=== PATIENT | female | born 1995 | race Caucasian/White ===

== ENCOUNTER → 2018-05-25 15:44 | Outpatient (CLI) | payer BC, MEDICAID ==
[2018-05-25 17:16] LABS: BASOPHILS 0.2 % (0-2); EOSINOPHILS 0.1 % (0-7); HEMATOCRIT 38.5 % (36.0-48.0); HEMOGLOBIN 13.7 g/dL (12-16); IMMATURE GRANULOCYTES 0.4 % (0-5); LYMPHOCYTES 14.6 % (15-50); MCH 33.7 pg (26.0-34.0); MCHC 35.6 g/dL (31.0-37.0); MCV 94.8 fL (80.0-100.0); MEAN PLATELET VOLUME 10.9 fL (7.4-10.4); MONOCYTES 5.2 % (2-11); NEUTROPHILS 79.5 % (40-80); PLATELET COUNT 251 10x3/uL (130-400); RBC 4.06 10x6/uL (4.00-5.40); RDW 12.2 % (11.5-14.5); WBC 12.8 10x3/uL (4.8-10.8)
[2018-05-25 17:21] LABS: CREATININE - URINE 29.9 mg/dL (30-125); PRO/CRE RATIO URINE 0.2 mg/g; PROTEIN - URINE 6.7 mg/dL (0.0-11.9)
[2018-05-25 17:25] LABS: UDS - AMPHET NEGATIVE QUAL (NEGATIVE); UDS - BARB NEGATIVE QUAL (NEGATIVE); UDS - BENZO NEGATIVE QUAL (NEGATIVE); UDS - COCAINE NEGATIVE QUAL (NEGATIVE); UDS - OPIATE NEGATIVE QUAL (NEGATIVE); UDS - PCP NEGATIVE QUAL (NEGATIVE); UDS - THC NEGATIVE QUAL (NEGATIVE)
[2018-05-25 17:32] LABS: ALBUMIN 3.5 g/dL (3.4-5.0); ALKALINE PHOSPHATASE 66 U/L (46-116); ALT (SGPT) 26 U/L (10-68); BILIRUBIN - TOTAL 0.22 mg/dL (0.2-1.3); CALC OSMOLALITY 274 mosm/kg (275-300); CALCIUM 9.1 mg/dL (8.5-10.1); CHLORIDE - SERUM 104 mmol/L (98-107); CREATININE - SERUM 0.7 mg/dL (0.6-1.3); GLUCOSE 85 mg/dL (74-106); LDH 136 U/L (81-234); POTASSIUM - SERUM 3.4 mmol/L (3.5-5.1); SODIUM 139 mmol/L (136-145); UREA NITROGEN 8 mg/dL (7-18); URIC ACID 3.2 mg/dL (2.6-7.2); eGFR NON AFRICAN AMERICAN > 90 mL/min (90-120)
[2018-05-25 17:47] LABS: CARBON DIOXIDE 27.1 mmol/L (21.0-32.0)
[2018-05-25 17:49] LABS: POTASSIUM - SERUM 37.1 mmol/L (3.5-5.1)
[2018-05-25 19:32] LABS: APPEARANCE HAZY (CLEAR); BILIRUBIN NEGATIVE (NEGATIVE); COLOR YELLOW (YELLOW); GLUCOSE NEGATIVE (NEGATIVE); KETONE NEGATIVE (NEGATIVE); NITRITE NEGATIVE (NEGATIVE); PROTEIN NEGATIVE (NEGATIVE); SPECIFIC GRAVITY 1.005 (1.005-1.020); UROBILINOGEN NORMAL (NORMAL)
[2018-05-26 19:08] LABS: PROTEIN - URINE 14.3 mg/dL (0.0-11.9)
== END | disposition home or self-care (01) ==
LOC: D.ER 15:24 → EDSTATUS 15:34 → D.LDO 15:44
PROVIDERS: ATTEND Obstetrics & Gynecology
DX: O26.892 Other specified pregnancy related conditions, second trimester (principal); Z3A.21 21 weeks gestation of pregnancy; R42 Dizziness and giddiness

== ENCOUNTER → 2018-09-16 14:18 | Outpatient (CLI) | payer BC, MEDICAID ==
[~2018-09-16 14:18] MED LIST: PRENAVITE1 TAB PO
[2018-09-16 15:17] LABS: APPEARANCE HAZY (CLEAR); BILIRUBIN NEGATIVE (NEGATIVE); COLOR YELLOW (YELLOW); GLUCOSE NEGATIVE (NEGATIVE); KETONE NEGATIVE (NEGATIVE); NITRITE NEGATIVE (NEGATIVE); PROTEIN NEGATIVE (NEGATIVE); UROBILINOGEN NORMAL (NORMAL)
[2018-09-16 15:19] LABS: RED CELLS - URINE 0-5 /hpf (0-5)
[2018-09-16 15:20] LABS: BACTERIA MANY /hpf (NONE SEEN); MUCUS <1+ /lpf (NONE SEEN)
[2018-09-22 03:08] LABS: CHENODEOXYCHOLIC ACID 1.1 umol/L (()); CHOLIC ACID 3.3 umol/L (()); TOTAL BILE ACIDS 4.9 umol/L (()); URSODEOXYCHOLIC ACID <0.10 umol/L (())
[2018-09-23 20:11] VITALS: BMI 27.5
== END | disposition home or self-care (01) ==
LOC: D.LDO 14:18
PROVIDERS: ATTEND Obstetrics & Gynecology
DX: O26.893 Other specified pregnancy related conditions, third trimester (principal); Z3A.37 37 weeks gestation of pregnancy

== ENCOUNTER → 2018-09-19 14:40 | Outpatient (CLI) | payer BC, MEDICAID ==
[2018-09-19 16:49] LABS: APPEARANCE CLEAR (CLEAR); BILIRUBIN NEGATIVE (NEGATIVE); COLOR YELLOW (YELLOW); GLUCOSE NEGATIVE (NEGATIVE); KETONE NEGATIVE (NEGATIVE); NITRITE NEGATIVE (NEGATIVE); PROTEIN NEGATIVE (NEGATIVE); SPECIFIC GRAVITY 1.015 (1.005-1.020); UROBILINOGEN NORMAL (NORMAL)
[2018-09-23 20:11] VITALS: BMI 27.5
== END | disposition home or self-care (01) ==
LOC: D.LDO 14:40
PROVIDERS: Obstetrics & Gynecology; ATTEND Obstetrics & Gynecology
DX: O26.892 Other specified pregnancy related conditions, second trimester (principal); Z3A.21 21 weeks gestation of pregnancy

== ENCOUNTER 2018-09-23 15:12 | Inpatient (IN) | payer BC, MEDICAID ==
[~2018-09-23] VITALS: Ht 165.1 cm; Wt 74.8 kg
--- NOTE | 2018-09-23 15:54 | NUR ---
PT'S NURSE IN ROOM WITH PT UPON ARRIVAL FOR SUICIDE ASSESSMENT. DR. GOYAL NOTIFIED AND REVIEWED PT'S BEHAVIOR AND ASSESSMENT RESULTS. PT IS A LOW RISK PER DR. GOYAL. DR. GOYAL STATED TO GIVE RESOURCES TO PT AT TIME OF DISCHARGE. NO FURTHER ORDERS AT THIS TIME. RESOURCES REVIEWED WITH PT AND SHE VERBALIZED UNDERSTANDING.
[2018-09-23 16:00] LABS: APPEARANCE CLEAR (CLEAR); COLOR YELLOW (YELLOW); SPECIFIC GRAVITY 1.015 (1.005-1.020)
[2018-09-23 16:01] LABS: BILIRUBIN NEGATIVE (NEGATIVE); GLUCOSE NEGATIVE (NEGATIVE); KETONE NEGATIVE (NEGATIVE); NITRITE NEGATIVE (NEGATIVE); PROTEIN NEGATIVE (NEGATIVE); UROBILINOGEN NORMAL (NORMAL)
[2018-09-23 16:04] LABS: EPITHELIAL CELLS 0-5 /hpf (0-5); RED CELLS - URINE OCC /hpf (0-5)
[2018-09-23 16:05] LABS: BACTERIA FEW /hpf (NONE SEEN)
[2018-09-23 16:17] LABS: HCG URINE POSITIVE (NEGATIVE)
[2018-09-23 18:00] LABS: ALBUMIN 2.5 g/dL (3.4-5.0); ALKALINE PHOSPHATASE 232 U/L (46-116); ALT (SGPT) 144 U/L (10-68); BILIRUBIN - DIRECT 0.36 mg/dL (0.00-0.30); BILIRUBIN - TOTAL 0.56 mg/dL (0.2-1.3); CALC OSMOLALITY 270 mosm/kg (275-300); CALCIUM 8.9 mg/dL (8.5-10.1); CARBON DIOXIDE 19.6 mmol/L (21.0-32.0); CHLORIDE - SERUM 104 mmol/L (98-107); CREATININE - SERUM 0.6 mg/dL (0.6-1.3); GLUCOSE 107 mg/dL (74-106); POTASSIUM - SERUM 4.1 mmol/L (3.5-5.1); PROTEIN - SERUM 6.5 g/dL (6.4-8.2); SODIUM 136 mmol/L (136-145); UREA NITROGEN 9 mg/dL (7-18); eGFR NON AFRICAN AMERICAN > 90 mL/min (90-120)
[2018-09-23] MEDS ORDERED: PRENAVITE1 TAB PO (18:39)
[2018-09-23 18:49] LABS: HEMATOCRIT 35.8 % (36.0-48.0); HEMOGLOBIN 12.8 g/dL (12-16); MCH 32.7 pg (26.0-34.0); MCHC 35.8 g/dL (31.0-37.0); MCV 91.6 fL (80.0-100.0); MEAN PLATELET VOLUME 11.6 fL (7.4-10.4); RBC 3.91 10x6/uL (4.00-5.40); RDW 11.9 % (11.5-14.5); WBC 9.9 10x3/uL (4.8-10.8)
[2018-09-23 20:11] VITALS: BP 127/83; Ht 165.1 cm; Wt 74.8 kg
--- NOTE | 2018-09-24 06:18 | NUR ---
PT RESIDENTIAL SALES ASSOCIATE LIGHT, PT C/O CRAMPING, ADM NORCO PER MD ORDERS, SEE EMAR, PT UP TO BR WITH ASSISTANCE, PT VOIDED WITH NO DIFFICULTY, ASSISTED PT WITH KRYSTLE CARE AND PAD, PT BACK TO BED, DENIES FURTHER NEEDS, IN OPEN CRIB CART AT BEDSIDE
[2018-09-24 07:26] VITALS: BP 111/70
--- NOTE | 2018-09-24 07:26 | NUR ---
RECEIVED PT SITTING UP IN BED. AWAKE. AAO X 3. VSS. HRRR WITHOUT AUDIBLE MURMUR. BBS CLEAR. BS X 4. ABDOMEN SOFT/NON-DISTENDED. FUNDUS FIRM AT U/U. RUBRA LOCHIA SMALL AMT. NO CLOTS OR HEAVY BLEEDING PER PT STATES. NEG HOMANS' SIGN. PPP. NO EDEMA NOTED TO BLE. PT DENIES PAIN. PT REQUESTS AND RECEIVES ORANGE JUICE. SR UP X 2. CALL LIGHT IN REACH.
--- NOTE | 2018-09-24 09:46 | NUR ---
PT AMB TO BR WITHOUT DIFFICULTY. STATES RIGHT LEG NOT NUMB. PT VOIDS WITHOUT DIFFICULTY. PERICARE DONE WITH BETADINE, TUCKS AND DERMOPLAST SPRAY. PT AMBULATES BACK TO BED. JAE ACTIVITY WELL.
--- NOTE | 2018-09-24 10:45 | NUR ---
PT SITTING UP IN BED. VISITS WITH VISITOR. DENIES C/O OR NEEDS.
--- NOTE | 2018-09-24 12:25 | NUR ---
PT C/O ABDOMINAL CRAMPING OF "4" ON 0-10 PAIN SCALE. MOTRIN 600 MG AND NORCO 5/325 GIVEN PO ORDERED. PT INSTRUCTED ON MEDS. VERBALIZES UNDERSTANDING.
[2018-09-24 13:37] VITALS: BP 114/79
--- NOTE | 2018-09-24 13:37 | NUR ---
PT SITTING UP IN BED. INFANT. VSS. PT DENIES PAIN OR NEEDS. PT ENCOURAGED TO AMBULATE IN HALLS AND OFFERED FOR PT TO SHOWER THIS AFTERNOON.
--- NOTE | 2018-09-24 15:30 | NUR ---
PT SITTING UP IN BED. CARING FOR INFANT. DENIES NEEDS OR C/O.
--- NOTE | 2018-09-24 16:00 | NUR ---
PT AMBULATORY IN HALLS. STATES SHOWERED. DENIES C/O OR NEEDS.
--- NOTE | 2018-09-24 18:00 | NUR ---
PT SITTING UP IN BED. CARING FOR INFANT. DENIES NEEDS OR C/O.
--- NOTE | 2018-09-24 19:10 | NUR ---
BEDSIDE REPORT COMPLETED AT THIS TIME WITH JACKELYN LOVELL TO ASSUME PATIENT CARE.
--- NOTE | 2018-09-24 19:34 | NUR ---
IBUPROFEN ADMINISTERED PO PER MD ORDERS AND PT REQUEST, SEE EMAR
[2018-09-24 19:36] VITALS: BP 106/75
--- NOTE | 2018-09-24 19:36 | NUR ---
SHIFT ASSESSMENT COMPLETED AT THIS TIME, SEE FLOWSHEET
--- NOTE | 2018-09-24 20:30 | NUR ---
PATIENT SLEEPING WITH EVEN RESPIRATIONS, REMAINS AT BEDSIDE IN OPEN CRIB
--- NOTE | 2018-09-24 22:17 | NUR ---
flagyl po per md orders, see emar. pt sitting up in bed holding infant, requests a sandwich tray, provided at this time, denies other needs. will continue to monitor
--- NOTE | 2018-09-24 23:30 | NUR ---
PT SITTING UP IN BED, IN OPEN CRIB AT BEDSIDE. ICE WATER PROVIDED, PT DENIES OTHER NEEDS. WILL CONTINUE TO MONITOR
[2018-09-25 00:23] VITALS: BP 118/59
--- NOTE | 2018-09-25 00:23 | NUR ---
PATIENT SITTING UP HOLDING , DENIES NEEDS OR PAIN AT THIS TIME. BED REMAINS LOCKED IN LOW POSITION, SIDE RAILS UPX2, CALL CRISTINA AND TRAY TABLE IN REACH
--- NOTE | 2018-09-25 01:01 | NUR ---
LAB AT BEDSIDE
[2018-09-25 01:15] LABS: BASOPHILS 0.2 % (0-2); EOSINOPHILS 1.1 % (0-7); HEMATOCRIT 30.5 % (36.0-48.0); HEMOGLOBIN 10.7 g/dL (12-16); IMMATURE GRANULOCYTES 0.3 % (0-5); LYMPHOCYTES 22.7 % (15-50); MCH 31.9 pg (26.0-34.0); MCHC 35.1 g/dL (31.0-37.0); MEAN PLATELET VOLUME 10.8 fL (7.4-10.4); MONOCYTES 8.2 % (2-11); NEUTROPHILS 67.5 % (40-80); PLATELET COUNT 197 10x3/uL (130-400); RBC 3.35 10x6/uL (4.00-5.40); WBC 12.2 10x3/uL (4.8-10.8)
--- NOTE | 2018-09-25 02:51 | NUR ---
PT COMPLAINING OF HER IV SITE BOTHERING HER AND REQUESTS THAT IT BE TAKEN OUT. IV D/C'D AT THIS TIME WITHOUT INCIDENT. NO FURTHER NEEDS IDENTIFIED.
--- NOTE | 2018-09-25 04:31 | NUR ---
PATIENT REQUESTING PAIN MEDICATION FOR 7/10 PAIN. NORCO ADMINISTERED PER MD ORDERS, SEE EMAR.
--- NOTE | 2018-09-25 05:17 | NUR ---
PATIENT SITTING IN BED HOLDING INFANT, STATES THAT SHE HAS NO PAIN. ICE WATER PROVIDED PER PT REQUEST. NO FURTHER NEEDS IDENTIFIED. WILL CONTINUE TO MONITOR
[2018-09-25 07:12] LABS: RAPID PLASMA REAGIN Non Reactive (Non Reactive)
[2018-09-25 08:13] VITALS: BP 113/80
--- NOTE | 2018-09-25 08:13 | NUR ---
THIS RN TO ROOM FOR SHIFT ASSESSMENT. PT SITTING UP IN BED HOLDING ON CHEST. PT DENIES ANY PAIN, DENIES HEAVY BLEEDING. PT INSTRUCTED ON S/S TO REPORT REGARDING LOCHIA FLOW/CLOTS. SHIFT ASSESSMENT DONE, VSS, SEE FLOWSHEET FOR DOC. FF, ML, U/2. SMALL RUBRA LOCHIA WITHOUT CLOTS. POC DISCUSSED WITH PT, PT VERBALIZES UNDERSTANDING. PT PROVIDED WITH PADS, PANTIES, AND INFANT DIAPERS REQUESTED. PT DENIES FURTHER NEEDS. SRUx2, CL IN REACH. WILL CONT TO MONITOR.
--- NOTE | 2018-09-25 09:36 | NUR ---
THIS RN TO ROOM FOR PT CHECK AND FLAGYL ADMIN. PT ADMIN FLAGYL SCHEDULED, SEE EMAR FOR DOC. PT DENIES FURTHER NEEDS, CHANGING INFANT DIAPER AT THIS TIME. Fiorella CL IN REACH. WILL CONT TO MONITOR.
--- NOTE | 2018-09-25 10:50 | NUR ---
THIS RN TO ROOM FOR PT CHECK. PT LYING IN BED WITH LIGHTS DIMMED, ALERTS THIS RN ENTERS ROOM. PT DENIES NEEDS. PT ENCOURAGED TO CONTINUE RESTING. SRUx2, CL IN REACH. RESTING IN [place] AT BEDSIDE. WILL CONT TO MONITOR.
--- NOTE | 2018-09-25 11:57 | NUR ---
THIS RN TO ROOM FOR PT CHECK. PT SITTING UP IN BED, INFANT. PT C/O CRAMPING, RATES PAIN 5/10 AND REQUESTING PAIN MEDICATION. PT ADMIN PRN MOTRIN ORDERED FOR PAIN, SEE EMAR FOR DOC. PT DENIES FURTHER NEEDS. SRUx2, CL IN REACH. WILL CONT TO MONITOR.
--- NOTE | 2018-09-25 13:04 | NUR ---
THIS RN TO ROOM FOR PT CHECK AND PAIN REASSESSMENT. PT SITTING UP IN BED, RATES PAIN 4/10 AT PERINEUM, PRESSURE AT STITCHES. PT REQUESTING ADDITIONAL PAIN MEDICATION. PT ADMIN PRN NORCO ORDERED, SEE EMAR FOR DOC. PT OFFERED ICE PACK FOR PERINEAL PAIN WELL. PT DENIES WANTING ICE PACK AT THIS TIME. SRUx2, CL IN REACH. WILL CONT TO MONITOR.
--- NOTE | 2018-09-25 16:30 | NUR ---
PT AMBULATING OFF UNIT, STATES SHE WANTS TO GO FOR A WALK. ACCOMPANIED BY FRIEND. PT DENIES DIZZINESS OR ANY NEEDS.
--- NOTE | 2018-09-25 16:50 | NUR ---
PT AMBULATES BACK TO ROOM, SMILING, DENIES NEEDS. ACCOMPANIED BY FRIEND.
--- NOTE | 2018-09-25 17:48 | NUR ---
THIS RN TO ROOM FOR PT CHECK. PT SITTING UP IN BED, DENIES PAIN OR ANY NEEDS AT THIS TIME. SRUx2, CL IN REACH. WILL CONT TO MONITOR.
--- NOTE | 2018-09-25 19:50 | NUR ---
PT UP TO SHOWER.
[2018-09-25 20:23] VITALS: BP 109/63
--- NOTE | 2018-09-25 20:32 | NUR ---
NORCO 5/325MG ADMINISTERED PO PER MD ORDERS AND PT REQUEST FOR PERINEAL PAIN.
--- NOTE | 2018-09-25 21:27 | NUR ---
PATIENT STATES THAT SHE IS NO LONGER IN PAIN. DENIES NEEDS, WILL CONTINUE TO MONITOR
--- NOTE | 2018-09-25 22:10 | NUR ---
RHOGAM INJECTION GIVEN IM TO LEFT DELTOID AT THIS TIME WITHOUT INCIDENT, BANDAID APPLIED, SEE EMAR
--- NOTE | 2018-09-26 00:15 | NUR ---
PATIENT AMBULATING IN HALLWAY TO BRING INFANT TO NURSERY AND TO GO OUTSIDE TO GET SOME FRESH AIR
--- NOTE | 2018-09-26 01:08 | NUR ---
PT BACK IN HER ROOM, SITTING UP IN THE BED WITH INFANT. DENIES NEEDS AT THIS TIME.
--- NOTE | 2018-09-26 03:00 | NUR ---
PATIENT FINISHED BREAST FEEDING, INFANT IN OPEN CRIB AT BEDSIDE, WILL CONTINUE TO MONITOR
--- NOTE | 2018-09-26 04:30 | NUR ---
PT SLEEPING, EASILY AROUSED TO VERBAL. JACKELYN KERN WITH PAT WHIPPLE CRIB TO ROOM FOR HIS FEEDING. PT DENIES NEEDS.
--- NOTE | 2018-09-26 05:44 | NUR ---
MOTRIN 600MG PO PER PT REQUEST, SEE EMAR
[2018-09-26 07:53] VITALS: BP 113/64
--- NOTE | 2018-09-26 07:53 | NUR ---
RECEIVED PT IN SEMI-BROWER'S POSITION. HOLDS WITH MUCH WARMTH SHOWN. VSS. HRRR WITHOUT AUDIBLE MURMUR. BBS CLEAR. BS X 4. ABDOMEN SOFT/NON-DISTENDED. PT STATES PASSING GAS. NO BM YET. FUNDUS FIRM AT U/2. RUBRA LOCHIA SMALL AMT. NO CLOTS OR HEAVY BLEEDING PER PT STATES. NEG HOMANS' SIGN. PPP. NO EDEMA NOTED TO BLE. SR UP X 2. CALL LIGHT IN REACH.
--- NOTE | 2018-09-26 08:40 | NUR ---
PT SITTING UP IN BED. REQUESTS AND RECEIVES MORE SUGAR FOR COFFEE.
--- NOTE | 2018-09-26 09:57 | NUR ---
DR VALIENTE ON UNIT. ORDER RECEIVED FOR DISCHARGE.
[2018-09-26] MEDS ORDERED: MOTRIN600 MG PO (10:23)
[2018-09-26] MEDS ORDERED: HYDROCODON-ACE1 EAC7 PO (10:23)
--- NOTE | 2018-09-26 11:05 | NUR ---
PT GIVEN DISCHARGE INSTRUCTIONS. VERBALIZES UNDERSTANDING OF ALL INSTRUCTIONS. COPIES GIVEN TO PT. RX FOR NORCO 5/325 AND MOTRIN GIVEN TO PT. PT AWAITS INFANT'S DISCHARGE.
--- NOTE | 2018-09-26 13:00 | NUR ---
PT SITTING UP IN BED. HOLDING INFANT WITH MUCH WARMTH SHOWN. DENIES C/O OR NEEDS. AWAITING 'S DISCHARGE.
--- NOTE | 2018-09-26 14:30 | NUR ---
PT READY FOR DISCHARGE. DISCHARGED IN STABLE CONDITION VIA WHEELCHAIR WITH SECURED IN CARSEAT TO PRIVATE VEHICLE.
== END 2018-09-26 14:30 | disposition home or self-care (01) | DRG 806 ==
LOC: D.LDO 15:12 → D.LD 18:34
PROVIDERS: ADMIT Obstetrics & Gynecology; ATTEND Obstetrics & Gynecology
PROC: 0KQM0ZZ Repair Perineum Muscle, Open Approach (ICD-10-PCS; principal; 2018-09-24)
PROC: 10E0XZZ Delivery of Products of Conception, External Approach (ICD-10-PCS; 2018-09-24)
DX: O26.62 Liver and biliary tract disorders in childbirth (principal); O98.32 Other infections with a predominantly sexual mode of transmission complicating childbirth; Z37.0 Single live birth; O71.4 Obstetric high vaginal laceration alone; Z3A.39 39 weeks gestation of pregnancy; O99.334 Smoking (tobacco) complicating childbirth

== ENCOUNTER 2018-10-21 02:27 | Emergency (ER) | payer BC, MEDICAID ==
[~2018-10-21] VITALS: Ht 165.1 cm; Wt 68.0 kg
[~2018-10-21 02:27] MED LIST changes: +HYDROCODON-ACE1 EAC7 PO; +MOTRIN600 MG PO
[2018-10-21 02:31] VITALS: Ht 165.1 cm; Wt 68.0 kg
[2018-10-21 03:29] LABS: BASOPHILS 0.1 % (0-2); EOSINOPHILS 1.2 % (0-7); HEMATOCRIT 36.6 % (36.0-48.0); HEMOGLOBIN 12.9 g/dL (12-16); IMMATURE GRANULOCYTES 0.2 % (0-5); LYMPHOCYTES 25.9 % (15-50); MCH 31.9 pg (26.0-34.0); MCHC 35.2 g/dL (31.0-37.0); MCV 90.4 fL (80.0-100.0); MEAN PLATELET VOLUME 10.3 fL (7.4-10.4); MONOCYTES 4.9 % (2-11); NEUTROPHILS 67.7 % (40-80); PLATELET COUNT 254 10x3/uL (130-400); RBC 4.05 10x6/uL (4.00-5.40); RDW 11.3 % (11.5-14.5); WBC 9.8 10x3/uL (4.8-10.8)
[2018-10-21 03:33] LABS: HCG SERUM NEGATIVE (NEGATIVE)
[2018-10-21 03:36] LABS: APPEARANCE CLOUDY (CLEAR); BILIRUBIN NEGATIVE (NEGATIVE); COLOR YELLOW (YELLOW); GLUCOSE NEGATIVE (NEGATIVE); KETONE NEGATIVE (NEGATIVE); NITRITE NEGATIVE (NEGATIVE); PROTEIN NEGATIVE (NEGATIVE); SPECIFIC GRAVITY 1.015 (1.005-1.020)
[2018-10-21 03:38] LABS: ALBUMIN 3.2 g/dL (3.4-5.0); ALKALINE PHOSPHATASE 210 U/L (46-116); ALT (SGPT) 45 U/L (10-68); AMYLASE - SERUM 42 U/L (25-115); BILIRUBIN - TOTAL 0.32 mg/dL (0.2-1.3); CALC OSMOLALITY 278 mosm/kg (275-300); CALCIUM 8.4 mg/dL (8.5-10.1); CARBON DIOXIDE 28.7 mmol/L (21.0-32.0); CHLORIDE - SERUM 104 mmol/L (98-107); CREATININE - SERUM 0.9 mg/dL (0.6-1.3); GLUCOSE 95 mg/dL (74-106); LIPASE 134 U/L (73-393); POTASSIUM - SERUM 3.3 mmol/L (3.5-5.1); PROTEIN - SERUM 6.7 g/dL (6.4-8.2); SODIUM 140 mmol/L (136-145); UREA NITROGEN 13 mg/dL (7-18); eGFR NON AFRICAN AMERICAN 82 mL/min (90-120)
[2018-10-21 03:38] LABS: AMORPHOUS SEDIMENT >1+ /lpf (NONE SEEN); BACTERIA FEW /hpf (NONE SEEN); EPITHELIAL CELLS 0-5 /hpf (0-5); RED CELLS - URINE 0-5 /hpf (0-5); WHITE CELLS - URINE 0-5 /hpf (0-5)
[2018-10-21] MEDS ORDERED: PROTONIX40 MG PO (05:38)
[2018-10-21 06:04] VITALS: BP 135/79
== END 2018-10-21 06:00 | disposition home or self-care (01) ==
LOC: D.ER 02:27
PROVIDERS: Family Medicine
DX: R10.13 Epigastric pain (principal); K29.70 Gastritis, unspecified, without bleeding

== ENCOUNTER 2020-01-04 19:31 | Emergency (ER) | payer BC, MEDICAID ==
[~2020-01-04] VITALS: Ht 165.1 cm; Wt 68.2 kg
[~2020-01-04 19:31] MED LIST changes: +PROTONIX40 MG PO
[2020-01-04 19:42] VITALS: Ht 165.1 cm; Wt 68.2 kg
[2020-01-04 20:15] LABS: BASOPHILS 0.2 % (0-2); EOSINOPHILS 0.8 % (0-7); HEMATOCRIT 32.8 % (36.0-48.0); HEMOGLOBIN 11.5 g/dL (12-16); IMMATURE GRANULOCYTES 0.6 % (0-5); LYMPHOCYTES 21.5 % (15-50); MCH 32.3 pg (26.0-34.0); MCHC 35.1 g/dL (31.0-37.0); MCV 92.1 fL (80.0-100.0); MONOCYTES 6.3 % (2-11); NEUTROPHILS 70.6 % (40-80); PLATELET COUNT 224 10x3/uL (130-400); RBC 3.56 10x6/uL (4.00-5.40); RDW 12.4 % (11.5-14.5); WBC 10.4 10x3/uL (4.8-10.8)
[2020-01-04 20:16] LABS: BACTERIA MANY HPF (NONE SEEN); BILIRUBIN NEGATIVE (NEGATIVE); EPITHELIAL CELLS NSEEN /hpf (0-5); KETONE NEGATIVE (NEGATIVE); NITRITE NEGATIVE (NEGATIVE); UROBILINOGEN NORMAL mg/dL (< 2); WHITE CELLS - URINE OCC HPF (0-4)
[2020-01-04 20:23] LABS: CALC OSMOLALITY 268 mosm/kg (275-300); CALCIUM 8.3 mg/dL (8.5-10.1); CARBON DIOXIDE 24.4 mmol/L (21.0-32.0); CHLORIDE - SERUM 105 mmol/L (98-107); CREATININE - SERUM 0.6 mg/dL (0.6-1.3); GLUCOSE 95 mg/dL (74-106); POTASSIUM - SERUM 3.8 mmol/L (3.5-5.1); SODIUM 135 mmol/L (136-145); UREA NITROGEN 11 mg/dL (7-18); eGFR NON AFRICAN AMERICAN > 90 mL/min (90-120)
[2020-01-04 20:29] LABS: ALBUMIN 2.8 g/dL (3.4-5.0); ALKALINE PHOSPHATASE 62 U/L (30-120); ALT (SGPT) 21 U/L (10-68); BILIRUBIN - TOTAL 0.13 mg/dL (0.2-1.3); PROTEIN - SERUM 6.5 g/dL (6.4-8.2)
[2020-01-04] MEDS ORDERED: MACROBID100 MG PO (20:56)
[2020-01-04 21:08] VITALS: BP 110/72
== END 2020-01-04 21:09 | disposition home or self-care (01) ==
LOC: D.ER 19:31
PROVIDERS: Family Medicine
DX: O26.892 Other specified pregnancy related conditions, second trimester (principal); N39.0 Urinary tract infection, site not specified

== ENCOUNTER 2020-05-22 22:29 | Outpatient (CLI) | payer BC, MEDICAID ==
[2020-01-04 19:42] VITALS: BMI 25.0
[~2020-05-22 22:29] MED LIST changes: +MACROBID100 MG PO
[2020-05-22 22:58] LABS: KETONE NEGATIVE (NEGATIVE); NITRITE NEGATIVE (NEGATIVE); UROBILINOGEN NORMAL mg/dL (< 2)
[2020-05-22 22:59] LABS: BILIRUBIN NEGATIVE (NEGATIVE)
[2020-05-22 23:00] LABS: BACTERIA MODERATE HPF (NONE SEEN)
[2020-05-22 23:03] LABS: UDS - AMPHET NEGATIVE QUAL (NEGATIVE); UDS - BARB NEGATIVE QUAL (NEGATIVE); UDS - BENZO NEGATIVE QUAL (NEGATIVE); UDS - COCAINE NEGATIVE QUAL (NEGATIVE); UDS - OPIATE NEGATIVE QUAL (NEGATIVE); UDS - PCP NEGATIVE QUAL (NEGATIVE); UDS - THC NEGATIVE QUAL (NEGATIVE)
== END 2020-05-22 23:25 | disposition home or self-care (01) ==
LOC: D.LDO 22:29
PROVIDERS: ATTEND Obstetrics & Gynecology
DX: O47.9 False labor, unspecified (principal)

== ENCOUNTER 2020-05-24 16:29 | Outpatient (CLI) | payer BC, MEDICAID ==
[2020-01-04 19:42] VITALS: BMI 25.0
[2020-05-24] MEDS ORDERED: PRENAVITE1 TAB PO (16:44)
[2020-05-24] MEDS ORDERED: ZOFRAN4 MG PO (16:45)
[2020-05-24] MEDS ORDERED: VISTARIL25 MG PO (16:45)
== END 2020-05-24 17:45 | disposition home or self-care (01) ==
LOC: D.LDO 16:29
PROVIDERS: ATTEND Obstetrics & Gynecology
DX: O35.9XX0 Maternal care for (suspected) fetal abnormality and damage, unspecified, not applicable or unspecified (principal)

== ENCOUNTER 2020-05-31 12:40 | Outpatient (CLI) | payer BC, MEDICAID ==
[2020-01-04 19:42] VITALS: BMI 25.0
[~2020-05-31 12:40] MED LIST changes: +VISTARIL25 MG PO; +ZOFRAN4 MG PO
[2020-05-31] MEDS ORDERED: OMEPRAZOLE40 MG PO (22:18)
== END 2020-05-31 13:00 | disposition home or self-care (01) ==
LOC: D.LDO 12:40
PROVIDERS: ATTEND Obstetrics & Gynecology
DX: O36.8190 Decreased fetal movements, unspecified trimester, not applicable or unspecified (principal)

== ENCOUNTER 2020-05-31 21:19 | Inpatient (IN) | payer BC, MEDICAID ==
[~2020-05-31] VITALS: Ht 165.1 cm; Wt 86.6 kg
[2020-05-31] MEDS ORDERED: OMEPRAZOLE40 MG PO (22:18)
[2020-05-31 22:20] VITALS: BP 111/77; Ht 165.1 cm; Wt 86.6 kg
[2020-06-01 00:37] LABS: HEMATOCRIT 32.5 % (36.0-48.0); HEMOGLOBIN 10.8 g/dL (12-16); MCH 29.8 pg (26.0-34.0); MCHC 33.2 g/dL (31.0-37.0); MCV 89.5 fL (80.0-100.0); RBC 3.63 10x6/uL (4.00-5.40); RDW 12.6 % (11.5-14.5); WBC 11.8 10x3/uL (4.8-10.8)
[2020-06-01 00:48] LABS: UDS - AMPHET NEGATIVE QUAL (NEGATIVE); UDS - BARB NEGATIVE QUAL (NEGATIVE); UDS - BENZO NEGATIVE QUAL (NEGATIVE); UDS - COCAINE NEGATIVE QUAL (NEGATIVE); UDS - OPIATE NEGATIVE QUAL (NEGATIVE); UDS - PCP NEGATIVE QUAL (NEGATIVE); UDS - THC NEGATIVE QUAL (NEGATIVE)
[2020-06-01 00:53] LABS: BILIRUBIN NEGATIVE (NEGATIVE); KETONE NEGATIVE (NEGATIVE); NITRITE NEGATIVE (NEGATIVE); UROBILINOGEN NORMAL mg/dL (< 2)
[2020-06-01 00:55] LABS: BACTERIA MODERATE HPF (NONE SEEN); SQUAMOUS EPITHELIAL 0-5 HPF (0-4)
--- NOTE | 2020-06-01 04:07 | NUR ---
PT GIVEN A BOLUS OF 0.4 MG AT THIS TIME. FOR ADDITIONAL PAIN CONTROL. Roxanne CASTELLANOS RN
--- NOTE | 2020-06-01 16:00 | NUR ---
RECIEVED PT VIA WHEELCHAIR FROM L&D ACCOMPANIED BY SIGNIFICANT OTHER AND L&D STAFF. REPORT RECEIVED FROM Adam MCBRIDE RN.
--- NOTE | 2020-06-01 17:00 | NUR ---
PT WAREHOUSE TEAM MEMBER LIGHT REQUESTING ASSISTANCE UP TO BATHROOM STATING HER LEG STILL FEELS A LITTLE NUMB. ASSISTED PT UP TO BATHROOM. PT VOIDED WITHOUT DIFFICULTY. PT AMBULATED BACK TO BED WITHOUT ASSISTANCE. BED IN LOW POSITION. SIDE RAILS UP X2, CALL LIGHT IN REACH.
[2020-06-01 17:55] VITALS: BP 118/75
--- NOTE | 2020-06-01 17:56 | NUR ---
PT SITTING UP IN BED WITH SKIN TO SKIN ON CHEST. VS TAKEN AND STABLE. NO NEEDS VOICED AT THIS TIME.
--- NOTE | 2020-06-01 19:05 | NUR ---
REPORT GIVEN BY JACKELYN HAYES
[2020-06-01 20:00] VITALS: BP 120/84
--- NOTE | 2020-06-01 20:15 | NUR ---
PT ASSESSMENT COMPLETED. PT HAD A NVD THIS AFTERNOON. SHE HAD NO TEARS OR LACERATIONS. SHE HAS A LITTLE CRAMPING BUT NOT BAD. SHE IS AMBULATING IN HER ROOM AND OUTSIDE IN HALLS. SHE STATES HER LOCHIA IS SMALL. HER FUNDUS IS FIRM. HER LUNGS SOUND CLEAR AND HEART SOUNDS WNL. SHE HAS A SALINE LOCK IN HER LEFT FOREARM. SHE HAS NO C/O OR NEEDS AT THIS TIME.
--- NOTE | 2020-06-01 21:00 | NUR ---
PT IS IN THE SHOWER. NO C/O NO NEEDS.
--- NOTE | 2020-06-01 22:00 | NUR ---
PT ASKED FOR PAIN MEDS FOR CRAMPING. SHE WAS GIVEN TYLENOL ES 2 PO AND 10 MG OF TORADOL PO. I EXPLAINED WHAT THE TORADOL WAS TO PT AND SHE VERBALIZED UNDERSTANDING.
--- NOTE | 2020-06-01 23:18 | NUR ---
CHECKED IN ON PT. SHE IS DOING WELL AND HER CRAMPING IS BETTER.
--- NOTE | 2020-06-02 00:45 | NUR ---
PT IS RESTING QUIETLY WITH HER EYES CLOSED. RESPIRATIONS ARE EVEN AND UNLABORED. SIDE RAILS UP X2 AND CALL LIGHT IS CLOSE BY.
--- NOTE | 2020-06-02 03:15 | NUR ---
PT IS STILL RESTING QUIETLY IN HER ROOM. NO C/O OR NEEDS AT THIS TIME.
--- NOTE | 2020-06-02 05:21 | NUR ---
PT IS STILL RESTING QUIETLY IN HER ROOM. SHE HAS NO C/O
[2020-06-02 07:16] LABS: RAPID PLASMA REAGIN Non Reactive (Non Reactive)
[2020-06-02 08:00] VITALS: BP 124/87
--- NOTE | 2020-06-02 08:00 | NUR ---
AM ASSESMENT COMPLETED CHARTED TO FLOWSHEET, VSS. SALINE LOCK REMOVED INTACT FROM LEFT FOREARM. RATES PAIN AT 2/10 AND STATES UNDERSTANDING TO CALL NURSE WHEN PAIN MED IS NEEDED. IN CRIB AT BEDSIDE AND PT SITTING UP TO EAT BREAKFAST, CALL LIGHT IN REACH WITH SIDE RAILS UP X 2.
--- NOTE | 2020-06-02 10:30 | NUR ---
DENIES PAIN OR DISCOMFORT. NO NEEDS AT THIS TIME.
--- NOTE | 2020-06-02 12:17 | NUR ---
DISCHARGE ORDER RECEIVED FROM DR HAGAN, PT STATES UNDERSTANDING THAT SHE WILL ROOM IN FOR TONIGHT DUE TO GBS PROTOCOL.
--- NOTE | 2020-06-02 14:00 | NUR ---
RHOGAM GIVEN SCANNED TO EMAR.
--- NOTE | 2020-06-02 14:08 | NUR ---
VERBAL AND WRITTEN DISCHARGE INSTRUCTIONS GONE OVER ALSO GIVEN COPY OF ROOMING IN POLICY AND PT DENIES QUESTIONS OR CONCERNS. INFANT IN CRIB AT BEDSIDE AND PT SIG OTHER ALSO PRESENT.
== END 2020-06-02 14:15 | disposition home or self-care (01) | DRG 788 ==
LOC: D.LD 21:19 → D.WS 06-01 15:30
PROVIDERS: ADMIT Obstetrics & Gynecology; ATTEND Obstetrics & Gynecology
PROC: 10D00Z1 Extraction of Products of Conception, Low, Open Approach (ICD-10-PCS; principal; 2020-06-01)
PROC: 3E033VJ Introduction of Other Hormone into Peripheral Vein, Percutaneous Approach (ICD-10-PCS; 2020-06-01)
DX: O99.334 Smoking (tobacco) complicating childbirth (principal); F17.200 Nicotine dependence, unspecified, uncomplicated; Z3A.39 39 weeks gestation of pregnancy; Z37.0 Single live birth; O70.0 First degree perineal laceration during delivery

== ENCOUNTER 2020-08-19 05:15 | Day surgery (SDC) | payer BC, MEDICAID ==
[2020-08-16 15:52] LABS: BASOPHILS 0.9 % (0-2); HEMATOCRIT 36.1 % (36.0-48.0); LYMPHOCYTES 28.2 % (15-50); MCH 27.2 pg (26.0-34.0); MCHC 33.2 g/dL (31.0-37.0); MEAN PLATELET VOLUME 8.4 fL (7.4-10.4); MONOCYTES 6.2 % (2-11); NEUTROPHILS 63.7 % (40-80); PLATELET COUNT 277 10x3/uL (130-400); RBC 4.41 10x6/uL (4.00-5.40); RDW 14.7 % (11.5-14.5); WBC 6.5 10x3/uL (4.8-10.8)
[~2020-08-19] VITALS: Ht 165.1 cm; Wt 87.1 kg
--- NOTE | ~2020-08-19 | OP ---
PATIENT NAME: RO WEAVER MEDICAL RECORD: [id number] :95 LOCATION:D.OPS ADMISSION DATE: SURGEON: JOSSELYN ROMAN DO DATE OF OPERATION: 08/19/2020 PREOPERATIVE DIAGNOSES: Desires sterility, right ovarian cyst. POSTOPERATIVE DIAGNOSES: Desires sterility, right ovarian cyst, right dermoid cyst. PRIMARY SURGEON: Josselyn Roman DO ANESTHESIA: General endotracheal tube. FINDINGS: Grossly normal uterus sounded to 8 cm. Grossly normal bilateral fallopian tubes, left ovary, right ovary enlarged and with dermoid cyst about 3-4 cm. PROCEDURES: Diagnostic laparoscopy, bilateral tubal ligation, and right ovarian cystectomy. SPECIMENS: Dermoid cyst. ESTIMATED BLOOD LOSS: Less than 20 cc. IV FLUIDS: Per anesthesia. URINE OUTPUT: 300 cc clear Yellow urine in Tamayo. INFECTION PROPHYLAXIS: ChloraPrep, abdominal prep, and 2 grams Ancef. COMPLICATIONS: None. Prior to surgery, risks were discussed with the patient including bleeding, pain, infection, damage to surrounding structures such as bowel, bladder, ureters, uterine perforation, risk of VTE and reoperation, reviewed tubal ligation is permanent and the patient understands and does not desire future childbearing. Consent signed in office, preoperatively all questions answered. DESCRIPTION OF PROCEDURE: The patient was taken to the operating room where general anesthesia was administered and found to be adequate. She was prepped and draped in normal sterile fashion in dorsal lithotomy position. Tamayo catheter placed and HUMI retractor was placed without issue. Attention was then turned to the abdomen. All sites were injected with Marcaine prior to port placement. Initial incision was subumbilical. Towel clamps used and the abdomen entered and tented upwards. A 5-mm trocar placed using direct entry with laparoscope using direct entry technique. Placement confirmed with the laparoscope and entry site examined. No trauma noted. Pneumoperitoneum created. Attention then turned to the left lower quadrant. An 8-mm port placed under direct visualization without incident and on right lower quadrant 5-mm port placed under direct visualization without issue. Kleppingers were utilized to coagulate fractional portion of tube 1.5 cm from the cornua and sized bites with good coagulation noted and blanching of tissue noted on both sides and then scissors used to cut in middle of this portion and good hemostasis noted. Ovaries then examined and left ovary within normal limits. Right ovary OPERATIVE REPORT [id number] RO WEAVER enlarged. Ovary palpated and on lateral aspect increased fluctuance noted, so J hook used to make approximately 1 cm incision and a cyst was noted, grasped with [place] and traction countertraction was used to try to bring cyst up and portion of incision on cyst wall had some clear fluid from that and then decision made to drain the cyst for easier removal. Suction claim service representative placed in the hole and deficit and suctioned hair and fat noted and removed, some portion did come out while manipulating cyst, but majority drained. So after this, the cyst was easier to manipulate and then again counter traction countertraction utilized to remove cyst in completion. Removed successfully and Endobag placed and cyst contents removed. Ovary irrigated and exterior edges were cyst removed through cauterized with good hemostasis. Due to some contents of the dermoid cyst being exposed, a thorough irrigation of the pelvic cavity completed times 3. Attention was then again turned to right ovary and Mark placed in deficit from cyst removal from cystectomy. Hemostasis was adequate. An abdominal survey again showed hemostasis adequate. Ports were removed. Pneumoperitoneum deflated. Specimen sent to pathology and skin closed in a subcuticular fashion with 3-0 Monocryl and Dermabond. All lap, needle, sponge counts correct times 2. The patient tolerated the procedure well and was taken to recovery room in stable condition. TRANSINT:[id number] Voice Confirmation ID: [id number] DOCUMENT ID: [id number] JOSSELYN ROMAN DO CC: [id number] DICTATION DATE: 08/29/20 1325 GENERAL CARGO CLERK: 08/29/202012 [facility] 08/19/[address] [address]
[~2020-08-19 05:15] MED LIST changes: +OMEPRAZOLE40 MG PO
[2020-08-19 06:08] VITALS: BP 123/77; Ht 165.1 cm; Wt 87.1 kg
[2020-08-19 06:17] LABS: HCG URINE NEGATIVE (NEGATIVE)
--- NOTE | 2020-08-19 11:47 | NUR ---
1115 IV REMOVED AND INSTRUCTIONS GIVEN. VOIDED AND NO VAGINAL BLEEDING
== END 2020-08-19 12:30 | disposition home or self-care (01) ==
LOC: D.OPS 05:15
PROVIDERS: ATTEND Obstetrics & Gynecology
DX: N83.201 Unspecified ovarian cyst, right side (principal); Z30.2 Encounter for sterilization